=== PATIENT | female | born 1965 | race Two or more races ===

== ENCOUNTER 2025-01-08 07:11 | Day surgery (SDC) | payer MEDICAID ==
[~2025-01-08] VITALS: Ht 157.5 cm; Wt 68.0 kg
[2025-01-08] VITALS (7 sets, daily range): BP systolic 123–144; BP diastolic 71–85; PULSE 82–87; RESP 11–16; TEMP 97.9; O2SAT 92–93
[~2025-01-08 07:11] MED LIST: CHLO25TA2 PO; CHOL50007 PO; INSLANTI SC; KRIL1CAP14 PO; MAGN400T40 PO; MECL-90 PO; MONT-8 PO; PIO30T PO; POM PO; VALS320T PO
[2025-01-08] MEDS: IODIXANOL 320MG/ML 100ML BTL IV ONE (07:33)
[2025-01-08] MEDS: ANGIOMAX 250 MG VIAL IV ONE (08:22)
[2025-01-08] MEDS: fentaNYL CITRATE 100 MCG/2 ML VL ONE (08:23)
[2025-01-08] MEDS: VERAPAMIL 2.5MG/ML INJ 2ML VIAL IV ONE (08:23)
[2025-01-08] MEDS: HEPARIN SODIUM (PORCINE) 5000 UNITS/ML 1ML VIAL ONE (08:23)
[2025-01-08] MEDS: SODIUM CHL 0.9% 0 ML ONE (08:24)
[2025-01-08] MEDS: MIDAZOLAM HCL 2MG/2ML 2ml VIAL (1mg/ml) ONE (08:24)
[2025-01-08] MEDS: LIDOCAINE 2%HCL (LOCAL ANESTH.) INJ 20ML MDV ONE (08:24)
--- NOTE | 2025-01-08 10:18 | DVHOP2 ---
Operative Report Procedures performed: Left heart catheterization and bilateral coronary angiogram Moderate sedation Diagnosis: Multivessel coronary artery disease Preserved left ventricular systolic function (EF of 65%) Cardiac suggestions for management: Elective/outpatient referral for Cardiothoracic surgery evaluation (bypass surgery) Findings: LVEF: 65% LVEDP: 6 mm Hg There was no transaortic valve pressure gradient Left main: Left main was coming off the left sinus of Valsalva. It was free of disease. LAD: LAD was coming off the left main. It had ectatic areas in its proximal to mid section. First diagonal was a very large caliber vessel (it did have ectatic areas). Mid LAD (after the takeoff of the 1st diagonal) revealed 75% lesion. After takeoff of the 2nd diagonal, LAD had 80% lesion. First diagonal itself (very large caliber vessel) had 80% proximal lesion. Second diagonal (medium-sized vessel) had 80% proximal lesion. LCX: LCX was coming off the left main. Proximal LCX at 85% lesion distal LCX had 99% lesion. Obtuse marginal was a medium-sized vessel with 80% lesion. LCX had ectatic/aneurysmal portions. RCA: RCA was coming off the right sinus of Valsalva. It was a dominant vessel and provided RPDA. Proximal RCA had 85 to 90% lesion. Mid to distal RCA had ectatic/aneurysmal portions. Presentation: Patient is a 59-year-old female who presented to the office with chest discomfort. Past medical history includes diabetes mellitus, hypertension, hyperlipidemia, and history of right bundle-branch block in EKG. Echocardiogram of December 11, 2024 revealed ejection fraction of 60-70% mild concentric left ventricular hypertrophy, impaired relaxation of left ventricular diastolic function. Mild left atrial enlargement, trace tricuspid regurgitation, mild mitral regurgitation and right ventricular systolic pressure of less than 35 mm Hg. Nuclear stress test of August 2023 was abnormal. Patient was sent for cardiac catheterization. Procedure: After obtaining informed consent, the patient was brought to logging ra[facility] lab[facility]. She was prepped and draped in sterile fashion. 1 mg of Versed and 50 mcg of fentanyl were given as a cocktail into right radial sheath. Right radial artery was used for access site. Using Seldinger technique, the right radial artery was accessed and a six Scottish slender sheath was inserted into it. 2.5 mg of verapamil and 100 mcg of nitroglycerin were given as a cocktail into the right radial sheath. 5000 units of heparin was given peripherally. A five Scottish tiger four diagnostic catheter was used to perform bilateral coronary angiography. We did recognize multivessel coronary artery disease and decision was made to involve Cardiothoracic surgery for possible bypass surgery. There was no dissection/hematoma/perforation. Patient tolerated procedure with no complication. Total bleeding was less than 5 mL. Right radial artery access site was managed by deploying a TR band. Fluoroscopy time: 2.1 minutes contrast: 55 mL of Visipaque DMITRI DUNHAM MD Jan 08, 2025 10:18
== END 2025-01-08 12:15 | disposition home or self-care (01) ==
LOC: EDSEX 07:11 → CATH 07:11
PROVIDERS: ATTEND Internal Medicine Cardiovascular Disease
DX: I25.10 Atherosclerotic heart disease of native coronary artery without angina pectoris (principal); E11.9 Type 2 diabetes mellitus without complications; E78.5 Hyperlipidemia, unspecified; I11.9 Hypertensive heart disease without heart failure; R07.89 Other chest pain; I45.10 Unspecified right bundle-branch block; R94.39 Abnormal result of other cardiovascular function study; I08.1 Rheumatic disorders of both mitral and tricuspid valves; Z79.899 Other long term (current) drug therapy; Z98.890 Other specified postprocedural states
CPT/HCPCS: 93458; C1894; J1644; J2250; J3010; J7030; Q9967; 99152